=== PATIENT | female | born 1960 | race Hispanic/Latino ===

== ENCOUNTER 2017-09-28 15:06 | Inpatient (IN) | payer OTHER ==
--- NOTE | 2017-09-28 16:00 | ED PDOC ---
Arrival/HPI - General Chief Complaint: Abdominal Pain Time Seen by Provider: 09/28/17 15:23 - History of Present Illness Narrative History of Present Illness (Text): 57 year old female presents with loose stools that occurred from 8AM to 12PM. Patient reported LLQ pain before passing bowel movements this morning. Patient reports only eating a sandwich at noon. Patient did not report any fever, nausea , or vomiting. Last menstrual period was 2 years ago. Patient denies urinary frequency, urgency, dysuria, or hematuria. (Ej Rausch) Past Medical History - Provider Review Nursing Documentation Reviewed: Yes - Infectious Disease Hx of Infectious Diseases: None - Cardiac Hx Hypertension: Yes - Endocrine/Metabolic Hx Hypothyroidism: Yes - Psychiatric Hx Substance Use: No - Surgical History Hx Appendectomy: Yes Other/Comment: Parathyroid surgery. Family/Social History - Physician Review Nursing Documentation Reviewed: Yes Family/Social History: Unknown Family HX Smoking Status: Never Smoked Hx Alcohol Use: No Hx Substance Use: No Allergies/Home Meds Allergies/Adverse Reactions: Allergies No Known Allergies Allergy (Verified 09/28/17 15:41) Home Medications: Home Meds Medication Instructions Recorded Confirmed Hydrochlorothiazide [Microzide] 1 tab PO DAILY 09/28/17 09/28/17 Levothyroxine Sodium [Synthroid] 1 tab PO DAILY 09/28/17 09/28/17 Losartan [Cozaar] 1 tab PO DAILY 09/28/17 09/28/17 Review of Systems - Review of Systems Constitutional: Normal Eyes: Normal ENT: Normal Respiratory: Normal Cardiovascular: Normal Gastrointestinal: Abdominal Pain (LLQ) Genitourinary Female: Normal Musculoskeletal: Normal Skin: Normal Neurological: Normal Endocrine: Normal Physical Exam Temperature: Afebrile Blood Pressure: Normal Pulse: Tachycardic (100) Respiratory Rate: Normal Appearance: Positive for: Well-Appearing Pain Distress: Moderate Mental Status: Positive for: Alert and Oriented X 3 - Systems Exam Head: Present: Atraumatic, Normocephalic Pupils: Present: PERRL Extroacular Muscles: Present: EOMI Pharnyx: Present: Normal Nose (External): Present: Atraumatic Neck: Present: Normal Range of Motion Respiratory/Chest: Present: Clear to Auscultation Cardiovascular: Present: Regular Rate and Rhythm Abdomen: Present: Tenderness (LLQ) Back: Present: Normal Inspection Upper Extremity: Present: Normal Inspection, Normal ROM, NORMAL PULSES Lower Extremity: Present: Normal Inspection, NORMAL PULSES, Normal ROM Neurological: Present: GCS=15, CN II-XII Intact, Speech Normal, Motor Func Grossly Intact, Normal Sensory Function - Physical Exam Narrative Physical Exam (Text): Impression: 57 year old female presents with LLQ pain and loose stools from 8AM- 12PM this morning Assessment: diverticulitis Rule out musculoskeletal pain, hemorrhagic ovarian cyst, pyelonephritis, UTI Plan: Abdominal/pelvis CT: UA/urine culture: CBC: CMP: PT/PTT: Lipase: CXR: EK09/28/17 20:06 09/28/17 20:09 (Ej Rausch) Vital Signs Temp Pulse Resp BP Pulse Ox 09/28/17 18:00 100 H 18 136/88 99 09/28/17 17:00 98 H 18 128/78 99 09/28/17 15:37 99.5 F 100 H 18 124/85 98 Medical Decision Making ED Course and Treatment: Impression: 57 year old female presents with LLQ pain and loose stools from 8AM to 12PM this morning Assessment: Diverticulitis Rule out hemorrhagic cyst, UTI, pyelonephritis, cholecystitis, musculoskeletal pain. Plan: CBC: WBC: 15 CMP: Lipase: CXR: EKG: Abdominal CT: There is mild diverticulitis at the junction of the desceding and sigmoid colon. Inflammatory changes are seen in the surrounding mesenteric fat. There is no evidence of abscess or extraluminal air. Urine analysis: small blood Urine culture: PT/INR: PTT: 36.7 09/28/17 20:[address] shows mild diverticulitis and CBC shows WBC at 15. Patient will be started on ciprofloaxicin 400 mg BID and flagyl 500 mg TID. Patient will be admitted to the hospitalist service with Dr. Alcala. 09/28/17 20:18 09/28/17 20:19 (Ej Rausch) - Lab Interpretations Lab Results: 09/28/17 16:40 09/28/17 16:40 Lab Results 09/28/17 17:35: Urine Color Yellow, Urine Appearance Clear, Urine pH 6.0, Ur Specific Brooks <= 1.005, Urine Protein Negative, Urine Glucose (UA) Negative, Urine Ketones Negative, Urine Blood Small H, Urine Nitrate Negative, Urine Bilirubin Negative, Urine Urobilinogen 0.2, Ur Leukocyte Esterase Negative, Urine RBC 1 - 3, Urine WBC 0 - 2, Ur Epithelial Cells 10 - 12 09/28/17 16:40: PT 11.9, INR 1.04, APTT 36.7 H 09/28/17 16:40: Sodium 140, Potassium 3.7, Chloride 100, Carbon Dioxide 26, Anion Gap 18, BUN 17, Creatinine 0.8, Est GFR ( Amer) > 60, Est GFR (Non- Af Amer) > 60, Random Glucose 111 H, Calcium 9.4, Total Bilirubin 0.7, AST 32, ALT 34, Alkaline Phosphatase 107, Total Protein 8.2, Albumin 4.5, Globulin 3.8, Albumin/Globulin Ratio 1.2, Lipase 91 09/28/17 16:40: WBC 15.0 H, RBC 4.60, Hgb 13.9, Hct 40.8, MCV 88.7, MCH 30.2, MCHC 34.1, RDW 13.5, Plt Count 353, MPV 9.2, Gran % 80.5 H, Lymph % (Auto) 12.0 L, [place] % (Auto) 7.1 H, Eos % (Auto) 0.3 L, Baso % (Auto) 0.1, Gran # 12.06 H, Lymph # (Auto) 1.8, [place] # (Auto) 1.1 H, Eos # (Auto) 0.1, Baso # (Auto) 0.01 - RAD Interpretation Radiology Orders: 09/28/17 16:01 ABD & PELVIS W/O PO OR IV CONT [CT] Stat 09/28/17 20:02 CHEST PORTABLE [RAD] Stat - Medication Orders Current Medication Orders: Ciprofloxacin (Cipro 400mg/200ml Dsw) 400 mg in 200 mls @ 133.3 mls/hr IVPB Q12 [facility] PRN Reason: Protocol Stop: 09/28/17 23:31 Metronidazole (Flagyl) 500 mg in 100 mls @ 100 mls/hr IVPB Q8 [facility] PRN Reason: Protocol Discontinued Medications Ketorolac Tromethamine (Toradol) 30 mg IVP STAT STA Stop: 09/28/17 16:05 Last Admin: 09/28/17 16:25 Dose: 30 mg MAR Pain Assessment Document 09/28/17 16:25 SZA (Rec: 09/28/17 16:25 [facility] [id number]) Pain Reassessment Is this a pain reassessment? No Sleep Is patient sleeping during reassessment? No Presence of Pain Presence of Pain Yes Pain Scale Used Pain Scale Used Numeric IVP Administration Document 09/28/17 16:25 SZA (Rec: 09/28/17 16:25 [facility] [id number]) Charges for Administration # of IVP Administrations 1 Re-Assess: [facility] Pain Assessment Document 09/28/17 17:25 A (Rec: 09/28/17 19:17 [facility] [id number]) Pain Reassessment Is this a pain reassessment? Yes Sleep Is patient sleeping during reassessment? No Presence of Pain Presence of Pain Yes Pain Scale Used Pain Scale Used Numeric Description Description Intermittent Intensity of Pain at present 4 - PA / [employer]IP[employer] / Resident Statement MD/DO has reviewed & agrees with the documentation as recorded. MD/DO has examined the patient and agrees with the treatment plan. Disposition/Present on Arrival - Present on Arrival Any Indicators Present on Arrival: No History of DVT/PE: No History of Uncontrolled Diabetes: No Urinary Catheter: No History of Decub. Ulcer: No History Surgical Site Infection Following: None - Disposition Have Diagnosis and Disposition been Completed?: Yes Disposition Time: 20:20 - Disposition Diagnosis: Diverticulitis Disposition: HOSPITALIZED Condition: STABLE Referrals: Moo Bales MD [Primary Care Provider] - Follow up with primary Forms: [employer] (Paraguayan)
[2017-09-28 16:52] LABS: BASO # 0.01 K/mm3 (0.0-2.0); BASO % 0.1 % (0.0-3.0); EOS # 0.1 (0.0-0.7); EOS % 0.3 % (1.5-5.0); GRAN # 12.06 (1.4-6.5); GRAN % 80.5 % (50.0-68.0); HEMOGLOBIN 13.9 g/dL (12.0-16.0); LYMPH # 1.8 (1.2-3.4); MEAN CELL VOLUME 88.7 fl (80.0-105.0); MEAN CORPUSCULAR HEMOGLOBIN 30.2 pg (25.0-35.0); MEAN CORPUSCULAR HGB CONC 34.1 g/dl (31.0-37.0); MEAN PLATELET VOLUME 9.2 fl (7.0-11.0); MONO # 1.1 (0.1-0.6); MONO % 7.1 % (1.0-6.0); RBC 4.6 10^6/uL (3.5-6.1); RED CELL DISTRIBUTION WIDTH 13.5 % (11.5-14.5)
[2017-09-28 16:56] LABS: ALB/GLOB RATIO 1.2 (1.1-1.8); ALBUMIN 4.5 g/dL (3.0-4.8); ALT/SGPT 34 U/L (7-56); AST/SGOT 32 U/L (14-36); BLOOD UREA NITROGEN 17 mg/dL (7-21); CALCIUM 9.4 mg/dL (8.4-10.5); GFR AFRICAN-AMERICAN > 60; GFR NON-AFRICAN AMERICAN > 60; INR 1.04 (0.93-1.08); LIPASE 91 U/L (23-300); PARTIAL THROMBOPLASTIN TIME 36.7 Seconds (25.1-36.5); PROTHROMBIN TIME 11.9 SECONDS (9.4-12.5)
--- NOTE | 2017-09-28 17:18 | CT ---
Date of service: 09/28/2017 PROCEDURE: CT Abdomen and Pelvis without intravenous contrast HISTORY: Abdominal pain COMPARISON: None. TECHNIQUE: Without contrast.. Contrast dose: Radiation dose: Total exam DLP = 906 mGy-cm. This CT exam was performed using one or more of the following dose reduction techniques: Automated exposure control, adjustment of the mA and/or kV according to patient size, and/or use of iterative reconstruction technique. FINDINGS: LOWER THORAX: Unremarkable. LIVER: Unremarkable. No gross lesion or ductal dilatation. GALLBLADDER AND BILE DUCTS: Unremarkable. PANCREAS: Unremarkable. No gross lesion or ductal dilatation. SPLEEN: Unremarkable. ADRENALS: Unremarkable. No mass. KIDNEYS AND URETERS: Unremarkable. No hydronephrosis. No solid mass. VASCULATURE: Unremarkable. No aortic aneurysm. BOWEL: There is mild diverticulitis at the junction of the descending and sigmoid colon. Inflammatory changes are seen in the surrounding mesenteric fat. There is no evidence of abscess or extraluminal air. APPENDIX: Not visualized. Probably removed. There is a suture line PERITONEUM: Unremarkable. No free fluid. No free air. LYMPH NODES: Unremarkable. No enlarged lymph nodes. BLADDER: Unremarkable. REPRODUCTIVE: Unremarkable. BONES: No acute fracture. OTHER FINDINGS: None. IMPRESSION: There is mild diverticulitis at the junction of the descending and sigmoid colon. Inflammatory changes are seen in the surrounding mesenteric fat. There is no evidence of abscess or extraluminal air.
[2017-09-28 18:05] LABS: URINE BILIRUBIN NEGATIVE (NEGATIVE); URINE BLOOD SMALL (NEGATIVE); URINE GLUCOSE (UA) NEGATIVE (NEGATIVE); URINE LEUKOCYTE ESTERASE NEGATIVE Leu/uL (NEGATIVE); URINE PROTEIN NEGATIVE mg/dL (<30 mg/dL); URINE UROBILINOGEN 0.2 E.U./dL (<1 E.U./dL)
[2017-09-28 18:07] LABS: URINE APPEARANCE CLEAR (CLEAR); URINE COLOR YELLOW (YELLOW)
[2017-09-28 18:29] LABS: URINE WBC 0 - 2 /hpf (0-6)
[2017-09-28] MEDS ORDERED: Ciprofloxacin 400mg/200ml D5W 400 MG/200 ML BAG IVPB SCH ×2 (20:35→22:00)
[2017-09-28] MEDS ORDERED: metroNIDAZOLE IV 500 mg/100 ml 500 MG/100 ML BAG IVPB SCH ×2 (20:45→22:00)
[2017-09-28] MEDS ORDERED: HYDROmorphone 2 mg/ml ISec IVP PRN (21:24)
[2017-09-28] MEDS ORDERED: HYDROmorphone 1 mg/ml ISec IVP PRN (21:29)
[2017-09-28] MEDS: Dextrose 5%/0.45% NS 1,000 ML IV SCH (22:00)
[2017-09-29] MEDS: metroNIDAZOLE IV 500 mg/100 ml 500 MG/100 ML BAG IVPB SCH ×4 (00:01→21:53)
[2017-09-29] MEDS ORDERED: Alum-Mag Hydrox-Simethicone Susp (30 mL) PO ONE (05:55)
[2017-09-29] MEDS ORDERED: Levothyroxine 50 MCG TAB PO SCH (07:30)
[2017-09-29 07:39] LABS: BASO # 0.02 K/mm3 (0.0-2.0); BASO % 0.2 % (0.0-3.0); EOS # 0.3 (0.0-0.7); EOS % 3.7 % (1.5-5.0); GRAN # 5.84 (1.4-6.5); GRAN % 63.3 % (50.0-68.0); HEMOGLOBIN 12.2 g/dL (12.0-16.0); LYMPH # 2.2 (1.2-3.4); LYMPH % 23.8 % (22.0-35.0); MEAN CELL VOLUME 88.9 fl (80.0-105.0); MEAN CORPUSCULAR HEMOGLOBIN 29.5 pg (25.0-35.0); MEAN CORPUSCULAR HGB CONC 33.2 g/dl (31.0-37.0); MEAN PLATELET VOLUME 9.2 fl (7.0-11.0); MONO # 0.8 (0.1-0.6); RBC 4.14 10^6/uL (3.5-6.1); RED CELL DISTRIBUTION WIDTH 13.7 % (11.5-14.5); WHITE BLOOD COUNT 9.2 10^3/ul (4.5-11.0)
[2017-09-29 08:02] LABS: ALB/GLOB RATIO 1.1 (1.1-1.8); ALBUMIN 3.7 g/dL (3.0-4.8); ALT/SGPT 27 U/L (7-56); AST/SGOT 26 U/L (14-36); BLOOD UREA NITROGEN 13 mg/dL (7-21); CALCIUM 8.8 mg/dL (8.4-10.5); GFR AFRICAN-AMERICAN > 60; GFR NON-AFRICAN AMERICAN > 60
--- NOTE | 2017-09-29 08:57 | RAD ---
Date of service: 09/28/2017 HISTORY: r/o infiltrate COMPARISON: No prior. FINDINGS: LUNGS: No active pulmonary disease. PLEURA: No significant pleural effusion identified, no pneumothorax apparent. CARDIOVASCULAR: Normal. OSSEOUS STRUCTURES: No significant abnormalities. VISUALIZED UPPER ABDOMEN: Normal. OTHER FINDINGS: None. IMPRESSION: No active disease.
--- NOTE | 2017-09-29 09:34 | HP ---
HISTORY OF PRESENT ILLNESS: The patient is 57 years old, came to emergency room because of left lower quadrant pain and having multiple episodes of diarrhea. The patient states she does have some loss of appetite. She developed this pain earlier this morning. *------*. The patient's pain has been getting worse, complained of decreased appetite and denies any hemoptysis, no hematemesis. No history of rectal bleeding. No history of fever or chills. PAST MEDICAL HISTORY: Significant for, 1. Hypertension. 2. Hypothyroidism. PAST SURGICAL HISTORY: Significant for, 1. Partial parathyroidectomy. 2. Appendectomy. She has been postmenopausal. ALLERGIES: SHE IS NOT ALLERGIC TO ANY MEDICATION. MEDICATIONS AT HOME: She is on losartan 25 mg daily, hydrochlorothiazide 25 daily, levothyroxine 50 mcg daily. SOCIAL HISTORY: Denies smoking, drinking alcohol use. REVIEW OF SYSTEMS: Significant for left lower quadrant discomfort and diarrhea. PHYSICAL EXAMINATION: GENERAL: She is awake, alert, oriented, communicative. VITAL SIGNS: She is afebrile, pulse 59, respirations 17, blood pressure 120/72. LUNGS: Bilateral fair airflow. No rhonchi or crackle. HEART: S1 and S2 audible. ABDOMEN: Soft. She has left lower quadrant discomfort. No rebound, no guarding. NEUROLOGIC: She is awake, alert, oriented, communicative. EXTREMITIES: No leg edema. LABORATORY DATA: WBC 15, hemoglobin 13.9, hematocrit 40.8, platelets 353. PT 11.9, INR 1.04, PTT 36.7. Chemistry: Sodium 140, potassium 3.7, chloride 100, CO2 of 26, BUN 17, creatinine 0.8, blood sugar 111. LFTs are within normal limits. Urinalysis show small blood. CT scan of the abdomen and pelvis done that shows evidence for diverticulitis starting from descending colon to sigmoid colon and with the stranding in the mesenteric area, no evidence of free air in the *------*. ASSESSMENT AND PLAN: 1. Descending colon diverticulitis. 2. Hypertension. 3. Hypothyroidism. 4. Leukocytosis. PLAN: We will start the patient on clear liquids, start on an IV fluid, Zofran as needed, has been started on Rocephin and Flagyl. We will follow up CBC and CMP. We will reevaluate patient in a.m. Thang Briceno MD [facility] # [id number]
[2017-09-29] MEDS ORDERED: cefTRIAXone 1 gm 1 GM/100 ML BAG IVPB SCH (10:00)
[2017-09-29] MEDS ORDERED: Levothyroxine 88 MCG TAB PO SCH ×2 (10:00)
[2017-09-29] MEDS: Dextrose 5%/0.45% NS 1,000 ML IV SCH (13:51)
--- NOTE | 2017-09-29 16:58 | CP.PCM.CON ---
History of Present Illness - History of Present Illness History of Present Illness: 57 year old female with PMH of appendectomy, S/P parathyroidectomy, hypothyroidism, obesity with BMI 34 came in to [facility] complaining of left lower quadrant pain that started about a week ago and worsened in the past 2 days. Initially it was vague pain, then became sharp and localized to left lower quadrant area. She denies fever or chills, no nausea or vomiting but had loose bowel movement. She denies headache or dizziness, no cough or colds, no dysuria , no chest pain, no SOB. CT A/P is showing diverticulitis at the junction of the sigmoid colon and descending colon. Infectious Diseases consult is requested to further evaluate and manage. Review of Systems - Review of Systems All systems: reviewed and no additional remarkable complaints except (as per HPI ) Past Patient History - Infectious Disease Hx of Infectious Diseases: None - Past Social History Smoking Status: Never Smoked - CARDIAC Hx Cardiac Disorders: Yes Hx Hypertension: Yes - PULMONARY Hx Respiratory Disorders: No - NEUROLOGICAL Hx Neurological Disorder: No - HEENT Hx HEENT Problems: No - RENAL Hx Chronic Kidney Disease: No - ENDOCRINE/METABOLIC Hx Endocrine Disorders: Yes Hx Hypothyroidism: Yes - HEMATOLOGICAL/ONCOLOGICAL Hx Blood Disorders: No - INTEGUMENTARY Hx Dermatological Problems: No - MUSCULOSKELETAL/RHEUMATOLOGICAL Hx Musculoskeletal Disorders: No Hx Falls: No - GASTROINTESTINAL Hx Gastrointestinal Disorders: No - GENITOURINARY/GYNECOLOGICAL Hx Genitourinary Disorders: No - PSYCHIATRIC Hx Psychophysiologic Disorder: No Hx Substance Use: No - SURGICAL HISTORY Hx Surgeries: Yes Hx Appendectomy: Yes Meds Allergies/Adverse Reactions: Allergies Allergy/AdvReac Type Severity Reaction Status Date / Time No Known Allergies Allergy Verified 09/28/17 15:41 - Medications Medications: Current Medications Acetaminophen (Tylenol 325mg Tab) 650 mg PO Q6H PRN PRN Reason: Fever >100.4 F Hydromorphone HCl (Dilaudid) 1 mg IVP Q4 PRN PRN Reason: Pain, moderate (4-7) Metronidazole (Flagyl) 500 mg in 100 mls @ 100 mls/hr IVPB Q8 [facility] PRN Reason: Protocol Last Admin: 09/29/17 05:34 Dose: 100 mls/hr Ceftriaxone Sodium (Rocephin 1 Gram Ivpb) 1 gm in 100 mls @ 100 mls/hr IVPB DAILY [facility] PRN Reason: Protocol Last Admin: 09/29/17 10:10 Dose: 100 mls/hr Dextrose/Sodium Chloride (Dextrose 5%/0.45% Ns 1000 Ml) 1,000 mls @ 100 mls/hr IV .Q10H [facility] Last Admin: 09/28/17 22:00 Dose: 100 mls/hr Levothyroxine Sodium (Synthroid) 50 mcg PO ACB [facility] Last Admin: 09/29/17 08:29 Dose: 50 mcg Losartan Potassium (Cozaar) 25 mg PO DAILY [facility] Last Admin: 09/29/17 10:11 Dose: 25 mg Ondansetron HCl (Zofran Inj) 4 mg IVP Q6H PRN PRN Reason: Nausea/Vomiting Physical Exam - Constitutional Appears: Non-toxic - Head Exam Head Exam: NORMAL INSPECTION - ENT Exam ENT Exam: Mucous Membranes Moist - Respiratory Exam Respiratory Exam: absent: Rales, Rhonchi - Cardiovascular Exam Cardiovascular Exam: +S1, +S2 - GI/Abdominal Exam GI & Abdominal Exam: Soft, Tenderness (LLQ area ). absent: Distended, Firm, Guarding, Rebound, Rigid Results - Vital Signs Recent Vital Signs: Last Vital Signs Temp 98.2 F 09/29/17 08:02 Pulse 76 09/29/17 10:11 Resp 18 09/29/17 08:02 BP 129/87 09/29/17 10:11 Pulse Ox 99 09/29/17 08:02 - Labs Result Diagrams: 09/29/17 07:00 09/29/17 07:00 Labs: Laboratory Results - last 24 hr 09/29/17 09/29/17 07:00 07:00 WBC 9.2 D RBC 4.14 Hgb 12.2 Hct 36.8 MCV 88.9 MCH 29.5 MCHC 33.2 RDW 13.7 Plt Count 309 MPV 9.2 Gran % 63.3 Lymph % (Auto) 23.8 [place] % (Auto) 9.0 H Eos % (Auto) 3.7 Baso % (Auto) 0.2 Gran # 5.84 Lymph # (Auto) 2.2 Crawford # (Auto) 0.8 H Eos # (Auto) 0.3 Baso # (Auto) 0.02 Sodium 141 Potassium 3.6 Chloride 103 Carbon Dioxide 28 Anion Gap 13 BUN 13 Creatinine 0.8 Est GFR ( Amer) > 60 Est GFR (Non-Af Amer) > 60 Random Glucose 93 Calcium 8.8 Total Bilirubin 0.9 AST 26 ALT 27 Alkaline Phosphatase 85 Total Protein 7.1 Albumin 3.7 Globulin 3.4 Albumin/Globulin Ratio 1.1 Assessment & Plan - Assessment and Plan (Free Text) Plan: Assessment Sepsis due to acute diverticulitis at the descending and sigmoid colon junction appendectomy S/P parathyroidectomy hypothyroidism obesity with BMI 34 Plan Started Rocephin and Flagyl and will follow up blood cx; patient NPO currently and will follow up advancement of her diet - may change to PO antibiotics once on full diet
--- NOTE | 2017-09-29 17:06 | CARD ---
APPROVED REPORT Date of service: 09/28/2017 EKG Measurement Heart [id number] <Conclusion> Normal sinus rhythm Inferior infarct, age undetermined Possible Anterior infarct, age undetermined Abnormal ECG
--- NOTE | 2017-09-29 22:11 | PN ---
DATE: 09/29/2017 HISTORY OF PRESENT ILLNESS: Ms. North is 57-year-old female admitted to the hospital with left lower quadrant abdominal pain. CAT scan of the abdomen and pelvis showed mild diverticulitis. She was started on IV fluids and ceftriaxone, Flagyl. Pain in left lower abdomen markedly decreased, but still she can feel some pain. She is currently n.p.o. On admission, she had leukocytosis with elevated white count of 15,000. PAST MEDICAL HISTORY: Hypothyroidism. PAST SURGICAL HISTORY: Appendectomy, parathyroid surgery. FAMILY HISTORY: Noncontributory. PERSONAL HISTORY: Never smoked. No history of alcohol abuse. SOCIAL HISTORY: Lives at home with . ALLERGIES: NO KNOWN DRUG ALLERGIES. HOME MEDICATIONS: Hydrochlorothiazide, Synthroid. Cozaar. REVIEW OF SYSTEMS: As per HPI. Rest of 12-point review of systems reviewed negative. PHYSICAL EXAMINATION: GENERAL: Comfortable in bed, in no acute distress. VITAL SIGNS: Temperature 98.7, heart rate 80 per minute, blood pressure 120/60. HEENT: Oral mucosa dry. No pallor. NECK: No lymphadenopathy. CHEST: Air entry present and equal bilaterally. No added sounds. CARDIOVASCULAR: S1, S2 normal. No murmur. No gallop. ABDOMEN: Soft, nontender. No rebound tenderness. No hepatosplenomegaly. EXTREMITIES: No edema. LABORATORY DATA: White count 15,000, hemoglobin 13.9, hematocrit 40.8, platelet 353. Glucose 111, creatinine 0.8, BUN 17. ASSESSMENT AND PLAN 1. Acute diverticulitis. 2. Leukocytosis. 3. Hypothyroidism. PLAN: She is n.p.o. Pain has subsided with IV antibiotic. CAT scan of the abdomen showed mild diverticulitis. We will start clear liquids. If she tolerates, we will continue to advance the diet. We will continue IV antibiotics, ceftriaxone and Flagyl. She is getting Dilaudid 1 mg every 4 hours p.r.n. for pain, is controlled with current medications. ID consultation, Dr. Cordova requested. She is on Synthroid at 88 mcg daily. We will increase the dose of Synthroid, currently getting 25 mcg daily. Discussed with the staff nurse regarding starting clear liquid and advancement of diet. Discussed with the patient at length, answered all her questions to her satisfaction. She had lot of questions regarding diverticulitis. Discussed the diet she need to follow to reduce the risk of future diverticulitis. Rosalind Fernando MD [facility] # [id number]
[2017-09-30] MEDS: metroNIDAZOLE IV 500 mg/100 ml 500 MG/100 ML BAG IVPB SCH (05:47)
[2017-09-30] MEDS ORDERED: Levothyroxine 88 MCG TAB PO SCH (06:00)
[2017-09-30 08:48] VITALS: BP 113/83; PULSE 73; RESP 20; O2SAT 100
[2017-09-30 08:52] VITALS: TEMP 98.2
--- NOTE | 2017-09-30 09:41 | CP.PCM.DIS ---
<Dominique Escalera - Last Filed: 09/30/17 10:03> Provider - Provider Date of Admission: 09/28/17 20:39 Attending physician: Moo Bales MD Primary care physician: Moo Bales MD Consults: ID: Art Time Spent in preparation of Discharge (in minutes): 35 Hospital Course - Lab Results Lab Results: Most Recent Lab Values WBC 9.2 10^3/ul (4.5-11.0) D 09/29/17 07:00 RBC 4.14 10^6/uL (3.5-6.1) 09/29/17 07:00 Hgb 12.2 g/dL (12.0-16.0) 09/29/17 07:00 Hct 36.8 % (36.0-48.0) 09/29/17 07:00 MCV 88.9 fl (80.0-105.0) 09/29/17 07:00 MCH 29.5 pg (25.0-35.0) 09/29/17 07:00 MCHC 33.2 g/dl (31.0-37.0) 09/29/17 07:00 RDW 13.7 % (11.5-14.5) 09/29/17 07:00 Plt Count 309 10^3/uL (120.0-450.0) 09/29/17 07:00 MPV 9.2 fl (7.0-11.0) 09/29/17 07:00 Gran % 63.3 % (50.0-68.0) 09/29/17 07:00 Lymph % (Auto) 23.8 % (22.0-35.0) 09/29/17 07:00 [place] % (Auto) 9.0 % (1.0-6.0) H 09/29/17 07:00 Eos % (Auto) 3.7 % (1.5-5.0) 09/29/17 07:00 Baso % (Auto) 0.2 % (0.0-3.0) 09/29/17 07:00 Gran # 5.84 (1.4-6.5) 09/29/17 07:00 Lymph # (Auto) 2.2 (1.2-3.4) 09/29/17 07:00 [place] # (Auto) 0.8 (0.1-0.6) H 09/29/17 07:00 Eos # (Auto) 0.3 (0.0-0.7) 09/29/17 07:00 Baso # (Auto) 0.02 K/mm3 (0.0-2.0) 09/29/17 07:00 PT 11.9 SECONDS (9.4-12.5) 09/28/17 16:40 INR 1.04 (0.93-1.08) 09/28/17 16:40 APTT 36.7 Seconds (25.1-36.5) H 09/28/17 16:40 Sodium 141 mmol/L (132-148) 09/29/17 07:00 Potassium 3.6 mmol/L (3.6-5.0) 09/29/17 07:00 Chloride 103 mmol/L (98-107) 09/29/17 07:00 Carbon Dioxide 28 mmol/L (21-33) 09/29/17 07:00 Anion Gap 13 (10-20) 09/29/17 07:00 BUN 13 mg/dL (7-21) 09/29/17 07:00 Creatinine 0.8 mg/dl (0.7-1.2) 09/29/17 07:00 Est GFR ( Amer) > 60 09/29/17 07:00 Est GFR (Non-Af Amer) > 60 09/29/17 07:00 Random Glucose 93 mg/dL (70-110) 09/29/17 07:00 Calcium 8.8 mg/dL (8.4-10.5) 09/29/17 07:00 Total Bilirubin 0.9 mg/dL (0.2-1.3) 09/29/17 07:00 AST 26 U/L (14-36) 09/29/17 07:00 ALT 27 U/L (7-56) 09/29/17 07:00 Alkaline Phosphatase 85 U/L (38-126) 09/29/17 07:00 Total Protein 7.1 g/dL (5.8-8.3) 09/29/17 07:00 Albumin 3.7 g/dL (3.0-4.8) 09/29/17 07:00 Globulin 3.4 gm/dL 09/29/17 07:00 Albumin/Globulin Ratio 1.1 (1.1-1.8) 09/29/17 07:00 Lipase 91 U/L (23-300) 09/28/17 16:40 Urine Color Yellow (YELLOW) 09/28/17 17:35 Urine Appearance Clear (CLEAR) 09/28/17 17:35 Urine pH 6.0 (4.7-8.0) 09/28/17 17:35 Ur Specific [place] <= 1.005 (1.005-1.035) 09/28/17 17:35 Urine Protein Negative mg/dL (<30 mg/dL) 09/28/17 17:35 Urine Glucose (UA) Negative mg/dL (NEGATIVE) 09/28/17 17:35 Urine Ketones Negative mg/dL (NEGATIVE) 09/28/17 17:35 Urine Blood Small (NEGATIVE) H 09/28/17 17:35 Urine Nitrate Negative (NEGATIVE) 09/28/17 17:35 Urine Bilirubin Negative (NEGATIVE) 09/28/17 17:35 Urine Urobilinogen 0.2 E.U./dL (<1 E.U./dL) 09/28/17 17:35 Ur Leukocyte Esterase Negative [place]/uL (NEGATIVE) 09/28/17 17:35 Urine RBC 1 - 3 /hpf (0-2) 09/28/17 17:35 Urine WBC 0 - 2 /hpf (0-6) 09/28/17 17:35 Ur Epithelial Cells 10 - 12 /hpf (0-5) 09/28/17 17:35 - Hospital Course Hospital Course: This is a 57yo female with past medical history of HTN, hypothyroidism s/p parathyroidectomy and appectectomy who was admitted for diverticulitis. Labs and imaging were reviewed. Patients placed on IV fluids and antibiotics. ID was on consult. Diet advanced as tolerated and patient is now tolerating soft diet. Pain has improved. We will send Cipro and Flagyl to pharmacy to complete antibiotic course. She will follow up with PMD, Dr. Bales as outpatient. Patient verbalized and agreed with discharge plan. She is independent in all ADLs and will be discharged home. - Date & Time of H&P Date of H&P: 09/28/17 Time of H&P: 10:00 Discharge Exam - Head Exam Head Exam: NORMAL INSPECTION - Eye Exam Eye Exam: Normal appearance, PERRL Pupil Exam: NORMAL ACCOMODATION, PERRL - ENT Exam ENT Exam: Mucous Membranes Moist - Respiratory Exam Respiratory Exam: Clear to PA & Lateral, NORMAL BREATHING PATTERN, UNREMARKABLE. absent: Rales, Rhonchi, Wheezes - Cardiovascular Exam Cardiovascular Exam: REGULAR RHYTHM, +S1, +S2. absent: Gallop, Rubs, Systolic Murmur - GI/Abdominal Exam GI & Abdominal Exam: Normal Bowel Sounds, Soft, Unremarkable. absent: Mass, Rigid, Tenderness - Extremities Exam Extremities exam: normal inspection - Neurological Exam Neurological exam: Alert, CN II-XII Intact, Normal Gait, Oriented x3 - Psychiatric Exam Psychiatric exam: Normal Affect, Normal Mood - Skin Skin Exam: Dry, Intact, Warm Discharge Plan - Discharge Medications Prescriptions: Ciprofloxacin [Cipro] 500 mg PO BID #6 tab metroNIDAZOLE [Flagyl] 500 mg PO Q8H #9 tab - Follow Up Plan Condition: STABLE Disposition: HOME/ ROUTINE Instructions: Soft Diet, Diverticulitis (DC), [place] Diet Additional Instructions: 1. Follow up with Dr. Bales as outpatient in 2 weeks. 2. Complete antibiotics course. Medications sent to [facility] 3. You will need screening colonoscopy as outpatient. 4. You can take over the counter Zantac or Pepcid as needed for acid reflux symptoms. Referrals: Moo Bales MD [Primary Care Provider] - <Moo Bales - Last Filed: 09/30/17 18:19> Provider - Provider Date of Admission: 09/28/17 20:39 Attending physician: Moo Bales MD Primary care physician: Moo Bales MD Hospital Course - Lab Results Lab Results: Most Recent Lab Values WBC 9.2 10^3/ul (4.5-11.0) D 09/29/17 07:00 RBC 4.14 10^6/uL (3.5-6.1) 09/29/17 07:00 Hgb 12.2 g/dL (12.0-16.0) 09/29/17 07:00 Hct 36.8 % (36.0-48.0) 09/29/17 07:00 MCV 88.9 fl (80.0-105.0) 09/29/17 07:00 MCH 29.5 pg (25.0-35.0) 09/29/17 07:00 MCHC 33.2 g/dl (31.0-37.0) 09/29/17 07:00 RDW 13.7 % (11.5-14.5) 09/29/17 07:00 Plt Count 309 10^3/uL (120.0-450.0) 09/29/17 07:00 MPV 9.2 fl (7.0-11.0) 09/29/17 07:00 Gran % 63.3 % (50.0-68.0) 09/29/17 07:00 Lymph % (Auto) 23.8 % (22.0-35.0) 09/29/17 07:00 [place] % (Auto) 9.0 % (1.0-6.0) H 09/29/17 07:00 Eos % (Auto) 3.7 % (1.5-5.0) 09/29/17 07:00 Baso % (Auto) 0.2 % (0.0-3.0) 09/29/17 07:00 Gran # 5.84 (1.4-6.5) 09/29/17 07:00 Lymph # (Auto) 2.2 (1.2-3.4) 09/29/17 07:00 [place] # (Auto) 0.8 (0.1-0.6) H 09/29/17 07:00 Eos # (Auto) 0.3 (0.0-0.7) 09/29/17 07:00 Baso # (Auto) 0.02 K/mm3 (0.0-2.0) 09/29/17 07:00 PT 11.9 SECONDS (9.4-12.5) 09/28/17 16:40 INR 1.04 (0.93-1.08) 09/28/17 16:40 APTT 36.7 Seconds (25.1-36.5) H 09/28/17 16:40 Sodium 141 mmol/L (132-148) 09/29/17 07:00 Potassium 3.6 mmol/L (3.6-5.0) 09/29/17 07:00 Chloride 103 mmol/L (98-107) 09/29/17 07:00 Carbon Dioxide 28 mmol/L (21-33) 09/29/17 07:00 Anion Gap 13 (10-20) 09/29/17 07:00 BUN 13 mg/dL (7-21) 09/29/17 07:00 Creatinine 0.8 mg/dl (0.7-1.2) 09/29/17 07:00 Est GFR ( Amer) > 60 09/29/17 07:00 Est GFR (Non-Af Amer) > 60 09/29/17 07:00 Random Glucose 93 mg/dL (70-110) 09/29/17 07:00 Calcium 8.8 mg/dL (8.4-10.5) 09/29/17 07:00 Total Bilirubin 0.9 mg/dL (0.2-1.3) 09/29/17 07:00 AST 26 U/L (14-36) 09/29/17 07:00 ALT 27 U/L (7-56) 09/29/17 07:00 Alkaline Phosphatase 85 U/L (38-126) 09/29/17 07:00 Total Protein 7.1 g/dL (5.8-8.3) 09/29/17 07:00 Albumin 3.7 g/dL (3.0-4.8) 09/29/17 07:00 Globulin 3.4 gm/dL 09/29/17 07:00 Albumin/Globulin Ratio 1.1 (1.1-1.8) 09/29/17 07:00 Lipase 91 U/L (23-300) 09/28/17 16:40 Urine Color Yellow (YELLOW) 09/28/17 17:35 Urine Appearance Clear (CLEAR) 09/28/17 17:35 Urine pH 6.0 (4.7-8.0) 09/28/17 17:35 Ur Specific [place] <= 1.005 (1.005-1.035) 09/28/17 17:35 Urine Protein Negative mg/dL (<30 mg/dL) 09/28/17 17:35 Urine Glucose (UA) Negative mg/dL (NEGATIVE) 09/28/17 17:35 Urine Ketones Negative mg/dL (NEGATIVE) 09/28/17 17:35 Urine Blood Small (NEGATIVE) H 07/14/18 17:35 Urine Nitrate Negative (NEGATIVE) 09/28/17 17:35 Urine Bilirubin Negative (NEGATIVE) 09/28/17 17:35 Urine Urobilinogen 0.2 E.U./dL (<1 E.U./dL) 09/28/17 17:35 Ur Leukocyte Esterase Negative [place]/uL (NEGATIVE) 09/28/17 17:35 Urine RBC 1 - 3 /hpf (0-2) 09/28/17 17:35 Urine WBC 0 - 2 /hpf (0-6) 09/28/17 17:35 Ur Epithelial Cells 10 - 12 /hpf (0-5) 09/28/17 17:35 - Hospital Course Hospital Course: Pt seen and examined. I have reviewed the note of the medical record retrieval specialist and agree with it. I have discussed the assessment and plan with the resident. I have reviewed the patient's labs and medications. Abd pain is improved. Will switch to PO Abx and send the pt home. She is tolerating her diet.
== END 2017-09-30 11:10 | disposition home or self-care (01) | DRG 392 ==
LOC: ED 15:06 → ERH 20:39 → 5RSO 21:35
PROVIDERS: ADMIT Internal Medicine Nephrology; ATTEND Internal Medicine Nephrology
DX: K57.32 Diverticulitis of large intestine without perforation or abscess without bleeding (principal); I10 Essential (primary) hypertension; E89.0 Postprocedural hypothyroidism; E66.9 Obesity, unspecified; Z68.34 Body mass index [BMI] 34.0-34.9, adult; Z90.49 Acquired absence of other specified parts of digestive tract

== ENCOUNTER 2017-11-30 13:28 | Emergency (ER) | payer OTHER ==
[2017-11-30 13:55] VITALS: TEMP 99.1
--- NOTE | 2017-11-30 14:24 | ED PDOC ---
Arrival/HPI - General Chief Complaint: Abdominal Pain Time Seen by Provider: 11/30/17 13:56 Historian: Patient - History of Present Illness Narrative History of Present Illness (Text): 11/30/17 14:16 Patient is a 57 year old female with past medical history of HTN, hypothyroidism , diverticulitis, s/p parathyroidectomy and appectectomy presenting to the emergency room with a complaint of mid/left lower abdominal pain. The patient started experiencing abdominal pain 3 days ago, described as cramping. Patient was admitted in September 2017 when she was diagnosed with diverticulitis. Patient states that the pains are "the exact same" as back in September. She called her PMD, Dr. Bales, who instructed her to come to the emergency room to be evaluated. Patient has been experiencing smaller caliber stool and increased abdominal pain with defecation, but denies diarrhea, constipation, blood or melena. Denies fevers, chills, nausea, vomiting, diarrhea, constipation, chest pain, shortness of breath, headaches, vision changes, sore throat, cough, urinary complaints, numbness or tingling. PMD: Dr. Bales Time/Duration: < week (3 days ) Symptom Onset: Gradual Symptom Course: Intermittent Quality: Cramping Past Medical History - Provider Review Nursing Documentation Reviewed: Yes - Infectious Disease Hx of Infectious Diseases: None - Reproductive Menopause: Yes - Cardiac Hx Cardiac Disorders: Yes Hx Hypertension: Yes - Pulmonary Hx Respiratory Disorders: No - Neurological Hx Neurological Disorder: No - HEENT Hx HEENT Disorder: No - Renal Hx Renal Disorder: No - Endocrine/Metabolic Hx Endocrine Disorders: Yes Hx Hypothyroidism: Yes - Hematological/Oncological Hx Blood Disorders: No - Integumentary Hx Dermatological Disorder: No - Musculoskeletal/Rheumatological Hx Musculoskeletal Disorders: No - Gastrointestinal Hx Gastrointestinal Disorders: Yes Hx Diverticulitis: Yes - Genitourinary/Gynecological Hx Genitourinary Disorders: No - Psychiatric Hx Psychophysiologic Disorder: No Hx Substance Use: No - Surgical History Hx Appendectomy: Yes Family/Social History - Physician Review Nursing Documentation Reviewed: Yes Family/Social History: No Known Family HX Smoking Status: Never Smoked Hx Alcohol Use: No Hx Substance Use: No Allergies/Home Meds Allergies/Adverse Reactions: Allergies No Known Allergies Allergy (Verified 11/30/17 13:49) Home Medications: Home Meds Medication Instructions Recorded Confirmed Hydrochlorothiazide [Microzide] 1 tab PO DAILY 09/28/17 11/30/17 Levothyroxine Sodium [Synthroid] 1 tab PO DAILY 09/28/17 11/30/17 Losartan [Cozaar] 1 tab PO DAILY 09/28/17 11/30/17 Review of Systems - Physician Review All systems were reviewed & negative as marked: Yes - Review of Systems Constitutional: Normal Eyes: Normal ENT: Normal Respiratory: Normal Cardiovascular: Normal Gastrointestinal: Abdominal Pain (cramping in the mid/left lower quadrant), Stool Changes (decreased caliber ). absent: Constipation, Diarrhea, Nausea, Vomiting, Appetite Changes, Hematochezia, Hematemesis, Anorexia, Food Intolerance Musculoskeletal: Normal Skin: Normal Neurological: Normal Endocrine: Normal Hemo/Lymphatic: Normal Psychiatric: Normal Physical Exam Vital Signs Reviewed: Yes Vital Signs Temp Pulse Resp BP Pulse Ox 11/30/17 16:31 91 H 18 131/83 100 11/30/17 13:50 99.1 F 110 H 16 113/80 97 Temperature: Afebrile Blood Pressure: Normal Pulse: Tachycardic Respiratory Rate: Normal Appearance: Positive for: Well-Appearing, Non-Toxic, Comfortable Pain Distress: None Mental Status: Positive for: Alert and Oriented X 3 - Systems Exam Head: Present: Atraumatic, Normocephalic Extroacular Muscles: Present: EOMI Conjunctiva: Present: Normal Mouth: Present: Moist Mucous Membranes Nose (External): Present: Atraumatic Nose (Internal): Present: Normal Inspection, No Active Bleeding, Moist Neck: Present: Normal Range of Motion. No: JVD, Lymphadenopathy Respiratory/Chest: Present: Clear to Auscultation, Good Air Exchange. No: Respiratory Distress, Accessory Muscle Use Cardiovascular: Present: Regular Rate and Rhythm, Normal S1, S2. No: Murmurs Abdomen: Present: Tenderness (LLQ>suprapubic). No: Distention, Peritoneal Signs , Rebound, Guarding, McBurney's Point Tender, Rovsing's Sign Present Back: Present: Normal Inspection Upper Extremity: Present: Normal Inspection, NORMAL PULSES. No: Cyanosis, Edema Lower Extremity: Present: Normal Inspection, NORMAL PULSES. No: Edema, CALF TENDERNESS Neurological: Present: GCS=15, Speech Normal, Motor Func Grossly Intact Skin: Present: Warm, Dry, Normal Color. No: Rashes Psychiatric: Present: Alert, Oriented x 3, Normal Insight, Normal Concentration Medical Decision Making ED Course and Treatment: 11/30/17 14:42 Comfortable appearing 57 year old female sent in by her PMD for evaluation of abdominal cramping, which is similar to her recently diagnosed diverticulitis pain presentation. Labs, Abd/Pelvis CT 11/30/17 14:57 mild leukocytosis, normal Cr ordered abd/pelvis CT w/ IV contrast 11/30/17 17:01 Reviewed abd/pelvis CT and discussed findings of mild diverticulitis with patient. Will discharge patient home with PO Cipro and Flagyl. Patient given toradol, 1L of NS and first dose of cipro and flagyl while in ED. Re-evaluation Time: 17:01 Reassessment Condition: Re-examined, Improving,but remains with symptoms - Lab Interpretations Lab Results: 11/30/17 14:15 11/30/17 14:15 Lab Results 11/30/17 14:15: PT 12.0, INR 1.05, APTT 34.7 11/30/17 14:15: Sodium 137, Potassium 3.9, Chloride 101, Carbon Dioxide 27, Anion Gap 13, BUN 13, Creatinine 0.9, Est GFR ( Amer) > 60, Est GFR (Non- Af Amer) > 60, Random Glucose 102, Calcium 9.1, Magnesium 2.2, Total Bilirubin 0.8, AST 37 H D, ALT 46, Alkaline Phosphatase 122, Total Protein 8.0, Albumin 4.3, Globulin 3.8, Albumin/Globulin Ratio 1.1, Lipase 82 11/30/17 14:15: WBC 13.7 H D, RBC 4.54, Hgb 13.7, Hct 40.8, MCV 89.9, MCH 30.2, MCHC 33.6, RDW 13.5, Plt Count 327, MPV 8.8, Gran % 76.8 H, Lymph % (Auto) 14.0 L, [place] % (Auto) 7.6 H, Eos % (Auto) 1.5, Baso % (Auto) 0.1, Gran # 10.49 H, Lymph # (Auto) 1.9, [place] # (Auto) 1.0 H, Eos # (Auto) 0.2, Baso # (Auto) 0.02 I have reviewed the lab results: Yes - RAD Interpretation Narrative RAD Interpretations (Text): 11/30/17 17:24 Abd/Pel CT w/IV contrast: There is mild diverticulitis of the sigmoid colon. The pattern is very similar to the exam of 09/28/2017. There is no focal abscess or free air. Radiology Orders: 11/30/17 14:56 ABD & PELVIS IV CONTRAST ONLY [CT] Stat Bee Worker: Radiologist - Medication Orders Current Medication Orders: Sodium Chloride (Sodium Chloride 0.9%) 1,000 mls @ 999 mls/hr IV .Q1H1M STA Stop: 11/30/17 17:47 Last Admin: 11/30/17 16:59 Dose: 999 mls/hr eMAR Start Stop Document 11/30/17 16:59 GMD (Rec: 11/30/17 16:59 GMD [id number]) Intravenous Solution Start Date 11/30/17 Start Time 16:59 End Date 11/30/17 End time 18:00 Total Infusion Time 61 Discontinued Medications Ciprofloxacin (Cipro) 500 mg PO ONCE STA PRN Reason: Protocol Stop: 11/30/17 16:47 Last Admin: 11/30/17 16:59 Dose: 500 mg Ketorolac Tromethamine (Toradol) 30 mg IVP STAT STA Stop: 11/30/17 16:48 Last Admin: 11/30/17 16:59 Dose: 30 mg MAR Pain Assessment Document 11/30/17 16:59 GMD (Rec: 11/30/17 16:59 GMD [id number]) Pain Reassessment Is this a pain reassessment? No IVP Administration Document 11/30/17 16:59 GMD (Rec: 11/30/17 16:59 GMD [id number]) Charges for Administration # of IVP Administrations 1 Metronidazole (Flagyl) 500 mg PO STAT STA PRN Reason: Protocol Stop: 11/30/17 16:48 Last Admin: 11/30/17 16:59 Dose: 500 mg Disposition/Present on Arrival - Present on Arrival Any Indicators Present on Arrival: No History of DVT/PE: No History of Uncontrolled Diabetes: No Urinary Catheter: No History of Decub. Ulcer: No History Surgical Site Infection Following: None - Disposition Have Diagnosis and Disposition been Completed?: Yes Diagnosis: Diverticulitis Disposition: HOME/ ROUTINE Disposition Time: 17:13 Patient Plan: Discharge Condition: FAIR Discharge Instructions (ExitCare): Diverticulitis (DC) Additional Instructions: Patient is to follow up with her Primary care physician within 2-3 days. Patient is to take her medication as directed. - Flagyl take 1 tab every 8 hours for the next 10 days - Do NOT take any alcohol with this medication as it will cause you to vomit. - Ciprofloxacin take 1 tab every 12 hours for the next 10 days Prescriptions: Ciprofloxacin [Cipro] 500 mg PO Q12 20 Days #10 tab Ciprofloxacin [Cipro] 500 mg PO Q12H 10 Days #20 tab Metronidazole [Flagyl] 500 mg PO Q8 10 Days #30 tablet Referrals: Moo Bales MD [Primary Care Provider] - Follow up with primary Forms: [employer] ([place])
[2017-11-30 14:36] LABS: BASO # 0.02 K/mm3 (0.0-2.0); BASO % 0.1 % (0.0-3.0); EOS # 0.2 (0.0-0.7); EOS % 1.5 % (1.5-5.0); GRAN # 10.49 (1.4-6.5); GRAN % 76.8 % (50.0-68.0); HEMOGLOBIN 13.7 g/dL (12.0-16.0); LYMPH # 1.9 (1.2-3.4); MEAN CELL VOLUME 89.9 fl (80.0-105.0); MEAN CORPUSCULAR HEMOGLOBIN 30.2 pg (25.0-35.0); MEAN CORPUSCULAR HGB CONC 33.6 g/dl (31.0-37.0); MEAN PLATELET VOLUME 8.8 fl (7.0-11.0); MONO % 7.6 % (1.0-6.0); RBC 4.54 10^6/uL (3.5-6.1); RED CELL DISTRIBUTION WIDTH 13.5 % (11.5-14.5); WHITE BLOOD COUNT 13.7 10^3/ul (4.5-11.0)
[2017-11-30 14:44] LABS: ALB/GLOB RATIO 1.1 (1.1-1.8); ALBUMIN 4.3 g/dL (3.0-4.8); ALT/SGPT 46 U/L (7-56); AST/SGOT 37 U/L (14-36); BLOOD UREA NITROGEN 13 mg/dL (7-21); CALCIUM 9.1 mg/dL (8.4-10.5); GFR NON-AFRICAN AMERICAN > 60; LIPASE 82 U/L (23-300)
[2017-11-30 14:45] LABS: INR 1.05; PARTIAL THROMBOPLASTIN TIME 34.7 Seconds (25.1-36.5)
[2017-11-30] MEDS ORDERED: Iohexol 350 MG/100 ML VIAL ONE (15:25)
--- NOTE | 2017-11-30 16:27 | CT ---
Date of service: 11/30/2017 PROCEDURE: CT Abdomen and Pelvis with contrast HISTORY: abd pain, hx of sig. diverticulitis COMPARISON: CT 09/28/2017 TECHNIQUE: Contrast dose: 100 cc of Omni 350 Radiation dose: Total exam DLP = 885 mGy-cm. This CT exam was performed using one or more of the following dose reduction techniques: Automated exposure control, adjustment of the mA and/or kV according to patient size, and/or use of iterative reconstruction technique. FINDINGS: LOWER THORAX: Unremarkable. LIVER: Unremarkable. No gross lesion or ductal dilatation. GALLBLADDER AND BILE DUCTS: Unremarkable. PANCREAS: Unremarkable. No gross lesion or ductal dilatation. SPLEEN: Unremarkable. ADRENALS: Unremarkable. No mass. KIDNEYS AND URETERS: Unremarkable. No hydronephrosis. No solid mass. VASCULATURE: Unremarkable. No aortic aneurysm. BOWEL: There is mild diverticulitis of the sigmoid colon. The pattern is very similar to the exam of 09/28/2017. There is no focal abscess or free air. APPENDIX: Normal appendix. PERITONEUM: Unremarkable. No free fluid. No free air. LYMPH NODES: Unremarkable. No enlarged lymph nodes. BLADDER: Unremarkable. REPRODUCTIVE: Unremarkable. BONES: No acute fracture. OTHER FINDINGS: None. IMPRESSION: There is mild diverticulitis of the sigmoid colon. The pattern is very similar to the exam of 09/28/2017. There is no focal abscess or free air.
[2017-11-30 16:32] VITALS: RESP 18
[2017-11-30] MEDS ORDERED: Sodium Chloride 0.9% 1,000 ML IV STA (16:47)
[2017-11-30 17:23] VITALS: BP 128/76; PULSE 78; O2SAT 98
== END 2017-11-30 17:22 | disposition home or self-care (01) ==
LOC: ED 13:28
DX: K57.32 Diverticulitis of large intestine without perforation or abscess without bleeding (principal); I10 Essential (primary) hypertension; E03.9 Hypothyroidism, unspecified
CPT/HCPCS: 74177; 80053; 83690; 83735; 85025; 85610; 85730; 96361; 96374; 99284; J1885; J7030; Q9967